=== PATIENT | female | born 1970 | race Caucasian/White ===

== ENCOUNTER 2017-09-23 23:39 | Emergency (ER) | payer OTHER ==
[~2017-09-23] VITALS: Ht 162.6 cm; Wt 81.7 kg
[~2017-09-23 23:39] MED LIST: ADDERALL 20 MG20 M1; CIPRO250 M1 PO; CLEOCIN HCL300 MG PO; DOXYCYCLINE 10100 M1 PO; DOXYCYCLINE 10100 MG PO; FLEXERIL PO; HYDROCODON-ACE1 EAC7 PO; HYDROCODONE-AP1 EAC6 PO; MACROBID 100 M100 M1 PO; MEDROLDOSEPACK PO; MOBIC15 MG PO; NORCO 5-325 TA1 EAC1 PO; NORCO 5-325 TA1 EACH PO; OSELB75 PO; PYRIDIUM100 M1 PO; PYRIDIUM200 MG PO; TRAMADOL 50 MG50 MG PO; VENTOLIN HFA 1818 GM INH; XARELTO10 MG PO
[2017-09-23] MEDS ORDERED: SUBOXONE 8 MG-1 EAC3 SUBLING (23:53)
[2017-09-24 00:35] LABS: HEMATOCRIT 39.1 % (37.0-47.0); HEMOGLOBIN 12.8 gm/dL (12.0-15.0); MCH 27.6 pg (26.0-34.0); MCHC 32.7 g/dL (28.0-37.0); MCV 84.3 fL (80.0-100.0); MPV 8.7 fl. (7.2-11.1); NUCLEATED RBCS 0 /100WBC; PLATELET COUNT* 304 thou/uL (150-400); RBC 4.64 mil/uL (4.20-5.00); RDW-CV 14.4 % (10.5-14.5); WBC 20.7 thou/uL (4.0-11.0)
[2017-09-24 00:43] LABS: ANION GAP 7 mmol/L (7-16); BUN 11 mg/dL (7-18); CALCIUM 8.9 mg/dL (8.5-10.1); CHLORIDE 101 mmol/L (98-107); CO2 27 mmol/L (21-32); GLUCOSE 116 mg/dL (70-99); SODIUM 135 mmol/L (136-145)
[2017-09-24 00:50] LABS: ALKALINE PHOSPHATASE 87 U/L (46-116); SGOT 26 U/L (15-37); SGPT 25 U/L (30-65); TOTAL BILIRUBIN 0.3 mg/dL (<0.1-1.0); TROPONIN-I LEVEL <0.06 ng/mL (<0.06)
[2017-09-24] MEDS ORDERED: BUTALB-APAP-CA1 EACH PO (01:14)
[2017-09-24 01:21] VITALS: BP 107/40
[2017-09-24 01:23] LABS: ABSOLUTE LYMPHOCYTES 1.9 thou/uL (0.8-5.3); ABSOLUTE MONOCYTES 1.9 thou/uL (0.0-1.2); PLATELET ESTIMATE ADEQUATE
--- NOTE | 2017-09-24 17:31 | EKG ---
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
== END 2017-09-24 01:24 | disposition home or self-care (01) ==
LOC: M.ERS 23:39
PROVIDERS: Nurse Practitioner Family
DX: R03.0 Elevated blood-pressure reading, without diagnosis of hypertension (principal); R51 Headache; D72.829 Elevated white blood cell count, unspecified; F17.210 Nicotine dependence, cigarettes, uncomplicated; Z88.2 Allergy status to sulfonamides; Z88.5 Allergy status to narcotic agent; Z86.14 Personal history of Methicillin resistant Staphylococcus aureus infection; Z86.718 Personal history of other venous thrombosis and embolism

== ENCOUNTER 2017-10-06 08:31 | Emergency (ER) | payer OTHER ==
[~2017-10-06] VITALS: Ht 165.1 cm; Wt 81.7 kg
[~2017-10-06 08:31] MED LIST changes: +BUTALB-APAP-CA1 EACH PO; +SUBOXONE 8 MG-1 EAC3 SUBLING
[2017-10-06] MEDS ORDERED: NAPROSYN500 MG PO (10:23)
[2017-10-06] MEDS ORDERED: HYDROCODON-ACE1 EAC7 PO (10:23)
[2017-10-06 10:34] VITALS: BP 135/74
== END 2017-10-06 10:34 | disposition home or self-care (01) ==
LOC: M.ERS 08:31
DX: M23.91 Unspecified internal derangement of right knee (principal); F17.210 Nicotine dependence, cigarettes, uncomplicated; Z88.2 Allergy status to sulfonamides; Z88.5 Allergy status to narcotic agent; Z90.49 Acquired absence of other specified parts of digestive tract

== ENCOUNTER 2017-10-12 22:45 | Emergency (ER) | payer OTHER ==
[~2017-10-12] VITALS: Ht 165.1 cm; Wt 77.1 kg
[~2017-10-12 22:45] MED LIST changes: +NAPROSYN500 MG PO
[2017-10-12] MEDS ORDERED: IBUPROFEN 800800 M1 PO (22:54)
[2017-10-13] MEDS ORDERED: CLEOCIN HCL150 MG PO (00:45)
[2017-10-13] MEDS ORDERED: FLEXERIL PO (00:46)
[2017-10-13 01:02] VITALS: BP 129/81
== END 2017-10-13 01:05 | disposition home or self-care (01) ==
LOC: M.ERS 22:45
DX: L03.115 Cellulitis of right lower limb (principal); M25.461 Effusion, right knee; F17.210 Nicotine dependence, cigarettes, uncomplicated; Z88.2 Allergy status to sulfonamides; Z88.5 Allergy status to narcotic agent; Z90.49 Acquired absence of other specified parts of digestive tract; Z86.718 Personal history of other venous thrombosis and embolism; Z86.14 Personal history of Methicillin resistant Staphylococcus aureus infection

== ENCOUNTER 2019-05-06 00:33 | Inpatient (IN) | payer OTHER ==
[~2019-05-06] VITALS: Ht 165.1 cm; Wt 79.4 kg
[~2019-05-06 00:33] MED LIST changes: +CLEOCIN HCL150 MG PO; +IBUPROFEN 800800 M1 PO
[2019-05-06 00:48] VITALS: BP 144/79
[2019-05-06 01:11] LABS: URINE BILIRUBIN 3+ (Negative); URINE BLOOD 2+ (Negative); URINE CLARITY CLEAR; URINE COLOR YELLOW; URINE GLUCOSE-RANDOM NEGATIVE (Negative); URINE KETONES NEGATIVE (Negative); URINE LEUKOCYTES-REFLEX TRACE (Negative); URINE NITRITE-REFLEX NEGATIVE (Negative); URINE PROTEIN 2+ (Negative); URINE SPECIFIC GRAVITY >= 1.030 (1.005-1.030)
[2019-05-06 01:12] LABS: ICTOTEST (BILI CONFIRMATORY) Positive (Negative)
[2019-05-06 01:13] LABS: SQUAMOUS 0-3 Few /LPF (0-3)
[2019-05-06 01:14] LABS: BACTERIA-REFLEX >30 Many /HPF (None Seen); CASTS None Seen /LPF (None Seen); CRYSTALS None Seen /LPF (None Seen); MUCUS 0-3 Light strn/LPF (None Seen); URINE WBC-REFLEX 6-15 Few /HPF (0-5)
[2019-05-06 01:33] LABS: ABSOLUTE BASOPHILS 0.1 thou/uL (0.0-0.2); ABSOLUTE EOSINOPHILS 0.4 thou/uL (0.0-0.7); ABSOLUTE LYMPHOCYTES 0.7 thou/uL (0.8-5.3); ABSOLUTE MONOCYTES 0.2 thou/uL (0.0-1.2); ABSOLUTE NEUTROPHILS 4.1 thou/uL (1.6-8.1); BASOPHILS 1.4 %; EOSINOPHILS 7.1 %; HEMATOCRIT 39.7 % (37.0-47.0); HEMOGLOBIN 13.7 gm/dL (12.0-15.0); LYMPHOCYTES 12.6 %; MCH 27.4 pg (26.0-34.0); MCHC 34.5 g/dL (28.0-37.0); MCV 79.4 fL (80.0-100.0); MONOCYTES 4.4 %; MPV 8.7 fl. (7.2-11.1); NUCLEATED RBCS 0 /100WBC; PLATELET COUNT* 171 thou/uL (150-400); POLYS 74.5 %; WBC 5.5 thou/uL (4.0-11.0)
[2019-05-06 01:46] LABS: CALCIUM 8.7 mg/dL (8.5-10.1); CREATININE 0.8 mg/dL (0.6-1.3); POTASSIUM 3.6 mmol/L (3.5-5.1)
[2019-05-06 01:50] LABS: ALBUMIN 2.8 g/dL (3.4-5.0); TOTAL BILIRUBIN 2.7 mg/dL (<0.1-1.0); TOTAL PROTEIN 6.7 g/dL (6.4-8.2)
[2019-05-06 03:25] LABS: INFLUENZA A ANTIGEN Negative (Negative); INFLUENZA B ANTIGEN Negative (Negative)
[2019-05-06 04:42] VITALS: BP 121/70
[2019-05-06 08:22] VITALS: BP 141/93
[2019-05-06 13:12] VITALS: BP 157/88
--- NOTE | 2019-05-06 13:52 | NUR ---
DR. LAZCANO HAS APPROVED THE PATIENT HAVING A REGULAR DIET ORDER. PT WAS GIVEN A REGULAR DIET LUNCH TRAY AT THIS TIME.
[2019-05-06 15:03] VITALS: BP 157/88
--- NOTE | 2019-05-06 20:18 | NUR ---
ASSUMED CARE OF THE PT @ 3330. PT ADMITTED TO ROOM 114 FROM ED. PT A/OX4. DENIES PAIN AT THAT TIME. ORDERS FOR IVF NS @ 100CC/HR. LT FA IV PATENT. TOLERATING REGULAR DIET. ORDERS FOR NPO IN AM. PT UP WITH SBA. STEADY GAIT. ORIENTED TO UNIT ROUTINES AND CALL LIGHT. cONSULTED ID PHYSICIAN. NEW ORDERS TO START CEFEPIME 1 GRAM Q 12HOURS. ORDERS FOR NASAL VIRAL AND BACTERIAL SWABS. PT RESTING QUIELY AT THIS TIME WITH CALL LIGHT IN REACH. BED LOW AND LOCKED. WILL CONITNUE TO MONITOR.
--- NOTE | 2019-05-06 21:50 | NUR ---
PATIENT TO RM 222 BY BED WITH ALL BELONGINGS AT 2150. VERBAL REPORT TO HANS MARTINEZ PRIOR TO TRANSFER. TRANSFER R/T HX MRSA REQUIRING ISOLATION AND NASAL SWAB AND ORDER FOR COVID-19 SWAB. PATIENT WAS UPDATED ON NEED FOR CHANGES IN AREA OF CARE AND IN AGREEMENT. PATIENT DID HOWEVER REFUSE SWAB FOR COVID-19.
[2019-05-06 22:00] VITALS: BP 114/81
[2019-05-07 04:07] LABS: HEPATITIS B SURFACE AG Negative (Negative)
--- NOTE | 2019-05-07 05:36 | NUR ---
RECIEVED PT PER CART FROM [facility]. PT IS AWAKE AND ORIENTED X4. VSS ON ROOM AIR. PT IS ORIENTED ON THE ROOM SET UP AND ON THE USE OF CALL LIGHT. PT C/O HEAD ACHE, RELIEVED BY PAIN MEDICINE GIVEN PER MAR. NICOTINE PATCH PROVIDED FOR SMOKING CESSATION AND XANAX FOR ANXIETY. PT WAS ABLE TO REST THEREAFTER. PT IS STILL REFUSING TO GET TESTED FOR [id number] GIVEN ON THE IMPORTANCE OF GETTING TESTED-TO NO AVAIL.CALL LIGHT WITHIN REACH. HOURLY ROUNDING DONE FOR PT SAFETY.
[2019-05-07 08:00] VITALS: BP 120/80
[2019-05-07 10:10] LABS: ALBUMIN 2.4 g/dL (3.4-5.0); CALCIUM 7.8 mg/dL (8.5-10.1); CREATININE 0.8 mg/dL (0.6-1.3); MAGNESIUM 1.9 mg/dL (1.8-2.4); POTASSIUM 3.8 mmol/L (3.5-5.1); TOTAL BILIRUBIN 2.9 mg/dL (<0.1-1.0); TOTAL PROTEIN 6.1 g/dL (6.4-8.2)
--- NOTE | 2019-05-07 11:23 | CON ---
[address] [address] CONSULTATION Name: ZACHERY VASQUEZ Room: [address] IN M.R.#: [id number] Admission: 05/06/19 Attend Phys: Freddy Duong MD Discharge: Date of : 70 Report #: [id number] THIS REPORT FOR: //name// cc: EVARISTO Mederos family physician/PCP EVARISTO - Rosa M family physician/PCP ~ THIS REPORT FOR: //name// CC: EVARISTO physician/PCP Freddy Duong DATE OF SERVICE: 05/07/2019 INFECTIOUS DISEASE CONSULTATION ATTENDING PHYSICIAN: Dr. Paul. HISTORY OF PRESENT ILLNESS: Chart reviewed, patient examined. This is a 48-year-old woman with known history of hepatitis C, although apparently followup confirmatory test and was found to be undetectable viral load at least from her recollection of the situation. She presented with a 3-4-day history of marked reflux symptoms with burning type pain involving the esophagus. She had some nausea, anorexia, poor p.o. intake. She initially had some fevers, these subsided. Denies any pulmonary-related complaints. She generally feels fairly well at this point. On questioning, denies any particular exposure history. No recent travel, no dietary indiscretion. Does have some dogs. No apparent illness. She underwent evaluation. Urinalysis showed moderate pyuria. CBC, white count was in the normal range and moderate lymphocytopenia of 700. Did have elevated hepatic transaminases including ALT of 585, AST of 611, glucose was 149, total bili elevated at 2.7. Influenza antigen was negative. CT abdomen and pelvis showed lung base was unremarkable. Liver and spleen were normal, no hiatal hernia, mild esophageal thickening. Acute hepatitis panel was confirmed to be hepatitis C antibody positive. She is not overtly ill appearing at this point. ALLERGIES: SULFA, CODEINE. CURRENT MEDICATIONS: Include alprazolam, nicotine, ondansetron as needed, started on cefepime. PAST MEDICAL HISTORY: Includes history of DVT, cholecystectomy, tubal ligation. SOCIAL HISTORY: Smokes tobacco. Occasional ethanol. No illicit drug use. FAMILY HISTORY: Noncontributory. REVIEW OF SYSTEMS: Otherwise, [place] [address] CONSULTATION Name: ZACHERY VASQUEZ Room: [address]#: [id number] Admission: 05/06/19 Attend Phys: Freddy Duong MD Discharge: Date of : 70 Report #: [id number] PHYSICAL EXAMINATION: GENERAL: She is alert, cooperative, appropriate. She is mildly jaundiced, appears generally well nourished. VITAL SIGNS: Temperature 98.4, pulse 69, respirations 16, blood pressure is 114/81. SKIN: Warm, dry. HEENT: Normocephalic. Extraocular muscles intact. NECK: Supple. LUNGS: Clear to auscultation. HEART: Regular. I do not appreciate murmur. ABDOMEN: Really, there is no tenderness. I do not appreciate any organomegaly. GENITOURINARY: Deferred. RECTAL: Deferred. LABORATORY DATA: Urinalysis: 6-15 white cells. CBC: White count of 5.5, H and H 13.7 and 39.7, platelets of 171,000. Electrolytes: Sodium 130, potassium 3.6, chloride 96, bicarbonate is 28, anion gap of 6, BUN and creatinine 8 and 0.8. As noted above, glucose 149, AST of 611, ALT of 585, lipase of 35. Total bili of 2.7, albumin of, total protein 6.7. Estimated GFR of 77. Influenza antigen was negative. CT as described above. ASSESSMENT AND PLAN: Hepatitis of unclear etiology. I suspect that hepatitis C antibody is not reflective of the current situation, may well be drug-induced related or perhaps viral. Secondly may well be urinary tract infections be the perhaps reason for the cefepime at this point and we will continue that at least another 24 hours, awaiting results and see how she does. She is being ruled out for COVID-19 as well. Hopefully, those results will return rather quickly. It is not evident that it is consistent with her presentation. <ELECTRONICALLY SIGNED> By: Jordan Rivero MD 05/07/19 1123 1026 [id number] Rivero MD /nt
[2019-05-07 12:19] VITALS: BP 128/83
[2019-05-07 15:59] VITALS: BP 128/76
--- NOTE | 2019-05-07 16:32 | CON ---
[address] [address] CONSULTATION Name: ZACHERY VASQUEZ Room: [address] IN .R.#: [id number] Admission: 05/06/19 Attend Phys: Freddy Duong MD Discharge: Date of : 70 Report #: [id number] THIS REPORT FOR: //name// cc: EVARISTO - No family physician/PCP EVARISTO - No family physician/PCP ~ THIS REPORT FOR: //name// CC: [facility] physician/PCP Freddy Duong DICTATED BY: Delma Solomon [facility] DATE OF SERVICE: 05/07/2019 The patient does not have a PCP at this time. Please note at the time of this dictation, the patient was seen and physically examined by myself. REASON FOR CONSULTATION: Transaminitis. HISTORY OF PRESENT ILLNESS: This is a 48-year-old female presented to the Emergency Room with having fever, chills, nausea, reflux-like symptoms and she noticed that her urine was really dark. She states she has become very anxious with all of this. She denies any coughing or head congestion, just mainly the chills and severe ongoing reflux issues, which she states now has improved. The patient states that she was told years ago that she had hepatitis C and then she was later told that she had seroconverted. The patient does have a past history of IV drug use back in her remote past. ALLERGIES: SULFA, CODEINE. MEDICATIONS FROM HOME: None. PAST MEDICAL HISTORY: History of MRSA, HCV but told she seroconverted. PAST SURGICAL HISTORY: Tubal ligation, ablation, DVT history and cholecystectomy. FAMILY HISTORY: Maternal grandmother, cervical cancer. REVIEW OF SYSTEMS: Twelve-point review of systems is essentially negative except what is mentioned in the HPI. PHYSICAL EXAMINATION: VITAL SIGNS: Temperature 36.4, pulse 70, respirations 16, blood pressure 120/80. HEART: Regular [place] [address] CONSULTATION Name: ZACHERY VASQUEZ Room: [address] IN [facility].#: [id number] Admission: 05/06/19 Attend Phys: Freddy Duong MD Discharge: Date of : 70 Report #: [id number] LUNGS: Clear. ABDOMEN: Soft, positive bowel sounds in all 4 quadrants with no masses or tenderness noted. LABORATORY DATA: Hemoglobin 13.7, white count 5.5, platelets 171. Total bilirubin 2.9, alkaline phosphatase 292, ALT 657, AST 414. Acute hepatitis panel positive for HCV. GFR was 77. IMPRESSION: 1. Transaminitis. 2. Positive hepatitis C virus. 3. Fever or chills. 4. Family history of cervical cancer in maternal grandmother. PLAN: 1. Await serological testing, SASCHA, AFP, alpha-1 antitrypsin, serum or plasma, ASMA, AMA, GGTP and HCV PCR RNA to confirm viral load at this time. 2. Ultrasound of the abdomen. 3. Further recommendations to be made once the above have all been reported. Thank you for allowing us to participate in this patient's care. Please do not hesitate to call with any questions in regard to this consult. Agree with above assessment and plan by Delma Solomon <ELECTRONICALLY SIGNED> By: Handy Genao MD 05/07/19 1632 1145 [id number] Genao MD /nt
--- NOTE | 2019-05-07 16:37 | NUR ---
cm completed assessment w/pt mother. pt lives w/a friend. pt is active and independent. has no dme. no hx w/hh or snf. cm to cont to follow
--- NOTE | 2019-05-07 18:22 | NUR ---
PT TOLERATING DIET. C/O HEADACHE, MANAGED BY MORPHINE PRN Q4H. PT TO BE KEPT MNPO FOR US ABD TOMORROW. UP AD MEY. COVID RESULTS PENDING, PRECAUTIONS MAINTAINED.
[2019-05-07 20:00] VITALS: BP 146/70
--- NOTE | 2019-05-08 05:42 | NUR ---
ASSUMED PT CARE AT APPROX 1930. PT IS AWAKE AND ORIENTED X4. VSS ON ROOM AIR. PT IS C/O HEAD AND NECK PAIN MANAGED BY MORPHINE GIVEN PER APR. PT IS ABLE TO SLEEP MOST OF THE NIGHT. CALL LIGHT WITHIN REACH. HOURLY ROUNDING DONE FOR PT SAFETY.
[2019-05-08 08:00] VITALS: BP 139/69
[2019-05-08] MEDS ORDERED: CEFDINIR300 MG PO (12:16)
[2019-05-08 12:31] VITALS: BP 138/81
[2019-05-08 12:36] VITALS: BP 138/81
--- NOTE | 2019-05-08 12:47 | NUR ---
ASSUMED PT CARE AT 0730. PT WAITING FOR BREAKFAST, A&OX4, C/O PAIN TO BACK AND NECK, TREATED W/ PRN MORPHINE W/ PARTIAL RELIEF. ON RA, SAT UPPER 90S, UP AD MEY, COVID PENDING. DR MARTIN HERE TO SEE PT. ORDERS RECEIVED FOR CHEST XR. RESULTS BACK NEGATIVE. OKAY FOR DISCHARGE PER DR MARTIN W/ COVID 19 QUARANTINE UNTIL RESULTS AVAILABLE. HAD ABD ULTRASOUND THIS MORNING, REFER TO RESULTS. AM ASSESSMENT CHARTED, MEDS PER MAR, REPOSITIONS SELF, HOURLY ROUNDING OBSERVED, CALL LIGHT W/IN REACH, CONTINUE POC.
--- NOTE | 2019-05-08 13:00 | NUR ---
DISCHARGE ORDERS RECEIVED. SCRIPT CALLED TO PHARMACY E SCRIPT PER DR MARTIN. PT DISCHARGED FROM FACILITY PRIOR TO SIGNING DISCHARGE PAPERWORK. 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 PT COMMUNICATES UNDERSTANDING OF DISCHARGE TEACHING VIA TELEPHONE. IV REMOVED. PT DISCHARGED WITH ALL BELONGINGS VIA WHEELCHAIR WITH NURSING STAFF TO FRIENDS OWN PERSONAL VEHICLE.
--- NOTE | 2019-05-10 16:53 | NUR ---
INFECTION PREVENTION NOTE: PATIENT NOTIFIED VIA TELEPHONE ON 05/10/2019 THAT COVID 19 NASAL SWAB TEST WAS NEGATIVE.
[2019-05-11 14:07] LABS: CERULOPLASMIN 52.5 mg/dL (19.0-39.0)
== END 2019-05-08 13:00 | disposition home or self-care (01) | DRG 442 ==
LOC: M.ERS 00:33 → M.2W 04:23 → M.TBA-ER 04:23 → M.ORTHSURG 15:30 → M.2W 21:20
PROVIDERS: Emergency Medicine; Internal Medicine; Nurse Practitioner Adult Health; ADMIT Internal Medicine
DX: B17.9 Acute viral hepatitis, unspecified (principal); N30.00 Acute cystitis without hematuria; E87.1 Hypo-osmolality and hyponatremia; K20.9 Esophagitis, unspecified; R74.0 Nonspecific elevation of levels of transaminase and lactic acid dehydrogenase [LDH]; F17.210 Nicotine dependence, cigarettes, uncomplicated; E86.0 Dehydration; E80.6 Other disorders of bilirubin metabolism; K21.9 Gastro-esophageal reflux disease without esophagitis; R65.10 Systemic inflammatory response syndrome (SIRS) of non-infectious origin without acute organ dysfunction; Z86.14 Personal history of Methicillin resistant Staphylococcus aureus infection; Z86.718 Personal history of other venous thrombosis and embolism; Z90.49 Acquired absence of other specified parts of digestive tract; Z88.6 Allergy status to analgesic agent; Z88.2 Allergy status to sulfonamides; Z86.19 Personal history of other infectious and parasitic diseases; Z80.8 Family history of malignant neoplasm of other organs or systems

== ENCOUNTER 2019-08-14 01:49 | Emergency (ER) | payer OTHER ==
[~2019-08-14] VITALS: Ht 167.6 cm; Wt 81.7 kg
[~2019-08-14 01:49] MED LIST changes: +CEFDINIR300 MG PO
[2019-08-14 03:06] VITALS: BP 141/76
== END 2019-08-14 03:07 | disposition home or self-care (01) ==
LOC: M.ERS 01:49
DX: S80.02XA Contusion of left knee, initial encounter (principal); F17.210 Nicotine dependence, cigarettes, uncomplicated; Z98.51 Tubal ligation status; Z90.49 Acquired absence of other specified parts of digestive tract; Z86.718 Personal history of other venous thrombosis and embolism; Z86.14 Personal history of Methicillin resistant Staphylococcus aureus infection; Z88.2 Allergy status to sulfonamides; Z88.5 Allergy status to narcotic agent; X50.3XXA Overexertion from repetitive movements, initial encounter; Y93.89 Activity, other specified; Y92.89 Other specified places as the place of occurrence of the external cause; Y99.8 Other external cause status

== ENCOUNTER 2019-08-23 16:24 | Emergency (ER) | payer OTHER ==
[~2019-08-23] VITALS: Ht 167.6 cm; Wt 77.1 kg
[2019-08-23 18:28] VITALS: BP 125/75
== END 2019-08-23 18:28 | disposition home or self-care (01) ==
LOC: M.ERS 16:24
DX: L02.511 Cutaneous abscess of right hand (principal); F17.210 Nicotine dependence, cigarettes, uncomplicated; Z90.49 Acquired absence of other specified parts of digestive tract; Z86.718 Personal history of other venous thrombosis and embolism; Z86.14 Personal history of Methicillin resistant Staphylococcus aureus infection; Z98.51 Tubal ligation status; Z88.2 Allergy status to sulfonamides; Z88.6 Allergy status to analgesic agent

== ENCOUNTER 2021-03-30 18:59 | Emergency (ER) | payer OTHER ==
[~2021-03-30] VITALS: Ht 162.6 cm; Wt 113.4 kg
[2021-03-30 19:11] VITALS: BP 156/92
[2021-03-30] MEDS ORDERED: ZOFRAN ODT4 MG PO (21:43)
[2021-03-30] MEDS ORDERED: AUGMENTIN 500-1 EACH PO (21:43)
== END 2021-03-30 19:26 | disposition left against medical advice (07) ==
LOC: M.ERS 18:59
DX: R11.2 Nausea with vomiting, unspecified (principal); R19.7 Diarrhea, unspecified; R10.9 Unspecified abdominal pain; Z98.51 Tubal ligation status; Z90.49 Acquired absence of other specified parts of digestive tract; Z86.718 Personal history of other venous thrombosis and embolism; Z88.2 Allergy status to sulfonamides; Z88.5 Allergy status to narcotic agent; Z53.21 Procedure and treatment not carried out due to patient leaving prior to being seen by health care provider

== ENCOUNTER 2021-03-30 19:23 | Emergency (ER) | payer OTHER ==
[~2021-03-30] VITALS: Ht 167.6 cm; Wt 81.7 kg
[2021-03-30 20:35] LABS: ABSOLUTE BASOPHILS 0.1 thou/uL (0.0-0.2); ABSOLUTE EOSINOPHILS 0.1 thou/uL (0.0-0.7); ABSOLUTE LYMPHOCYTES 1.3 thou/uL (0.8-5.3); ABSOLUTE MONOCYTES 0.5 thou/uL (0.0-1.2); ABSOLUTE NEUTROPHILS 9.7 thou/uL (1.6-8.1); BASOPHILS 0.5 %; EOSINOPHILS 0.6 %; HEMATOCRIT 46.2 % (37.0-47.0); HEMOGLOBIN 15.3 gm/dL (12.0-15.0); MCH 27.1 pg (26.0-34.0); MCV 81.9 fL (80.0-100.0); MONOCYTES 4.5 %; MPV 8.7 fl. (7.2-11.1); NUCLEATED RBCS 0 /100WBC; PLATELET COUNT* 449 thou/uL (150-400); POLYS 83.4 %; RBC 5.64 mil/uL (4.20-5.00); WBC 11.6 thou/uL (4.0-11.0)
[2021-03-30 20:43] LABS: CALCIUM 8.9 mg/dL (8.5-10.1); CREATININE 0.9 mg/dL (0.6-1.3); POTASSIUM 3.4 mmol/L (3.5-5.1)
[2021-03-30 20:46] LABS: URINE BLOOD TRACE (Negative); URINE COLOR YELLOW; URINE GLUCOSE-RANDOM NEGATIVE (Negative); URINE KETONES NEGATIVE (Negative); URINE LEUKOCYTES-REFLEX NEGATIVE (Negative); URINE PROTEIN 1+ (Negative); URINE SPECIFIC GRAVITY >= 1.030 (1.005-1.030); URINE UROBILINOGEN 0.2 E.U./dl (0.2-1.0)
[2021-03-30 20:55] LABS: ALBUMIN 3.6 g/dL (3.4-5.0); MAGNESIUM 2.1 mg/dL (1.8-2.4); TOTAL BILIRUBIN 0.5 mg/dL (<0.1-1.0); TOTAL PROTEIN 7.6 g/dL (6.4-8.2)
[2021-03-30 20:57] LABS: AMP/METHAMP Negative (Negative); BARBITURATES Negative (Negative); BENZODIAZEPINES Negative (Negative); COCAINE Negative (Negative); METHADONE Negative (Negative); OPIATES Negative (Negative); PCP Negative (Negative); THC POSITIVE (Negative)
[2021-03-30 21:07] LABS: ICTOTEST (BILI CONFIRMATORY) Negative (Negative); SQUAMOUS 0-3 Few /LPF (0-3); URINE BILIRUBIN 1+ (Negative); URINE CLARITY HAZY; URINE NITRITE-REFLEX POSITIVE (Negative); URINE RBC None Seen /HPF (0-2); URINE WBC-REFLEX 0-5 Rare /HPF (0-5)
[2021-03-30 21:08] LABS: CASTS None Seen /LPF (None Seen); CRYSTALS None Seen /LPF (None Seen); MUCUS 0-3 Light strn/LPF (None Seen)
[2021-03-30] MEDS ORDERED: ZOFRAN ODT4 MG PO (21:43)
[2021-03-30] MEDS ORDERED: AUGMENTIN 500-1 EACH PO (21:43)
[2021-03-30 22:32] VITALS: BP 124/64
== END 2021-03-30 22:32 | disposition home or self-care (01) ==
LOC: M.ERS 19:23
PROVIDERS: Personal Emergency Response Attendant
DX: K52.9 Noninfective gastroenteritis and colitis, unspecified (principal); F17.210 Nicotine dependence, cigarettes, uncomplicated; Z98.51 Tubal ligation status; Z90.49 Acquired absence of other specified parts of digestive tract; Z86.718 Personal history of other venous thrombosis and embolism; Z88.2 Allergy status to sulfonamides; Z88.5 Allergy status to narcotic agent